=== PATIENT | male | born 1960 | race Caucasian/White ===

== ENCOUNTER 2017-07-18 05:58 | Inpatient (IN) | payer OTHER ==
--- NOTE | 2017-07-09 04:11 | GHP ---
[f rep st] HISTORY AND PHYSICAL CURRENT COMPLAINT: Right hip osteoarthritis. HISTORY OF PRESENT ILLNESS: This is a 57-year-old male with several months increase in pain and decr ease in range of motion to right hip, worsening with use and with time. Despite conservative measure s, he continues to have these issues. X-ray reveals [id number] osteoarthritic changes. He wishes to have surgery in order to resolve the problem. ALLERGIES: He lists no prior allergies. CURRENT MEDICATIONS: Include: Lisinopril, hydrochlorothiazide, and loratadine. PAST MEDICAL HISTORY: Include arthritis. PAST SURGICAL HISTORY: He lists no prior surgeries. SOCIAL HISTORY: He has never been a smoker. He is a social drinker. PHYSICAL EXAMINATION: EYES: Pupils equal, round, and reactive to light. CHEST: Clear to auscultat ion. HEART: Regular rate and rhythm. ABDOMEN: Soft and nontender. RIGHT HIP: Reveals decreased range of motion, internal-external rotation to a flexed hip. IMAGING: X-ray exam reveals [id number] osteoarthritic changes to the right hip. PLAN: Take him to the operating room to undergo a right total hip arthroplasty. /[id number]/MODL
[2017-07-18] MEDS ORDERED: TRANEXAMIC ACID 3,000 MG in NS (SYRINGE) 50 ML IRR ONE (06:00)
[2017-07-18] MEDS ORDERED: ROPIVACAINE 0.2% 80 MG, EPINEPHrine 0.2 MG, KETOROLAC TROMETHAMINE 30 MG, morphINE 10 M... IU ONE (06:00)
[2017-07-18] MEDS ORDERED: ceFAZolin 2 GM/SWFI 2 GM/20 ML SYR IVP ONE (06:00)
[2017-07-18] MEDS ORDERED: PREGABALIN 150 MG CAP PO ONE (06:00)
[2017-07-18] MEDS ORDERED: ACETAMINOPHEN 500 MG TAB PO ONE (06:00)
[2017-07-18] MEDS ORDERED: CALCIUM CHLORIDE 1 GM/10 ML INJ ONE (06:38)
[2017-07-18] MEDS ORDERED: THROMBIN (BOVINE) 5,000 UNIT VIAL TP ONE (06:38)
[2017-07-18] MEDS ORDERED: BACITRACIN 50,000 UNITS/10 ML SYR IRR ONE (06:38)
[2017-07-18] MEDS ORDERED: POLYMYXIN B SULFATE 500,000 UNIT/10 ML SYR IRR ONE (06:38)
[2017-07-18] MEDS ORDERED: BUPIVACAINE/EPI 0.5% 30 ML SDV ONE (06:38)
[2017-07-18] MEDS ORDERED: TRANEXAMIC ACID 3,000 MG/50 ML BAG IRR ONE (06:39)
[2017-07-18] MEDS ORDERED: MIDAZOLAM 2 MG/2 ML VIAL IVP ONE (06:58)
--- NOTE | 2017-07-18 06:58 | PDANEPAE ---
ANE History of Present Illness here for YANA ANE Past Medical History - Cardiovascular History Hx Hypertension: Yes Hx Arrhythmias: No Hx Chest Pain: No Hx Coronary Artery / Peripheral Vascular Disease: No Hx CHF / Valvular Disease: No Hx Palpitations: No - Pulmonary History Hx COPD: No Hx Asthma/Reactive Airway Disease: No Hx Recent Upper Respiratory Infection: No Hx Oxygen in Use at Home: No Hx Sleep Apnea: No Sleep Apnea Screening Result - Last Documented: Negative - Neurologic History Hx Cerebrovascular Accident: No Hx Seizures: No Hx Dementia: No - Endocrine History Hx Diabetes: No - Renal History Hx Renal Disorders: No - Liver History Hx Hepatic Disorders: No - Neurological & Psychiatric Hx Hx Neurological and Psychiatric Disorders: No - Cancer History Hx Cancer: No - Congenital Disorder History Hx Congenital Disorders: No - GI History Hx Gastrointestinal Disorders: No - Other Health History Other Health History: NEG - Chronic Pain History Chronic Pain: Yes (R HIP) - Surgical History Prior Surgeries: APPENDECTOMY ANE Review of Systems Review of Systems: - Exercise capacity METS (RN): 4 METS ANE Patient History - Allergies Allergies/Adverse Reactions: No Known Allergies Allergy (Verified 06/28/17 13:25) - Home Medications Home Medications: Herbals/Supplements -Info Only 1 ea PO DAILY 06/28/17 [Last Taken 07/11/17] Ibuprofen [Motrin (*)] 200 mg PO Q4H PRN 06/28/17 [Last Taken 07/11/17] Lisinopril/Hydrochlorothiazide [Lisinopril-Hctz 10-12.5 mg Tab] 1 each PO DAILY 06/28/17 [Last Taken 07/17/17 06:00] Loratadine [Claritin] 10 mg PO DAILY PRN 06/28/17 [Last Taken 07/15/17] Multivitamins [Multivitamin (*)] 1 each PO DAILY 06/28/17 [Last Taken 07/11/17] - NPO status NPO Since - Liquids (Date): 07/17/17 NPO Since - Liquids (Time): 04:00 NPO Since - Solids (Date): 07/17/17 NPO Since - Solids (Time): 19:00 - Smoking Hx Smoking Status: Never smoked - Family Anes Hx Family Hx Anesthesia Complications: NEG ANE Labs/Vital Signs - Vital Signs Blood Pressure: 154/93 Heart Rate: 74 Respiratory Rate: 16 O2 Sat (%): 95 Height: 177.8 cm Weight: 86.183 kg
[2017-07-18] MEDS ORDERED: fentaNYL 100 MCG/2 ML INJ ONE ×3 (07:08→10:00)
[2017-07-18] MEDS ORDERED: PROPOFOL/EMULSION 500 MG/50 ML BOTTLE IV ONE ×2 (07:13→08:21)
[2017-07-18] MEDS ORDERED: LR 1,000 ML IV ONE (07:23)
[2017-07-18] MEDS ORDERED: ONDANSETRON 4 MG/2 ML VIAL IVP PRN ×2 (09:35→09:55)
[2017-07-18] MEDS ORDERED: TEMAZEPAM 15 MG CAP PO PRN (09:35)
[2017-07-18] MEDS ORDERED: DIPHENOXYLATE/ATROPINE LOMOTIL 1 TAB PO PRN (09:35)
[2017-07-18] MEDS ORDERED: METOCLOPRAMIDE 10 MG/2 ML VIAL IVP PRN (09:35)
[2017-07-18] MEDS ORDERED: POLYETHYLENE GLYCOL 3350 17 GM PKT PO PRN (09:35)
[2017-07-18] MEDS ORDERED: TAPENTADOL HCL 50 MG TAB PO PRN (09:35)
[2017-07-18] MEDS ORDERED: diphenhydrAMINE 25 MG CAP PO PRN (09:35)
[2017-07-18] MEDS ORDERED: BISACODYL 10 MG SUPP PR PRN (09:35)
[2017-07-18] MEDS ORDERED: MAGNESIUM HYDROXIDE 30 ML UDCUP PO PRN (09:35)
[2017-07-18] MEDS ORDERED: LACTULOSE 20 GM/30 ML UDCUP PO PRN (09:35)
[2017-07-18] MEDS ORDERED: CYCLOBENZAPRINE 10 MG TAB PO PRN (09:35)
[2017-07-18] MEDS ORDERED: oxyCODONE IR 5 MG TAB PO PRN (09:35)
[2017-07-18] MEDS ORDERED: PROMETHAZINE HCL 25 MG SUPPR PR PRN (09:35)
--- NOTE | 2017-07-18 09:35 | POSTOPPROG ---
Post Op Note Date of Operation: 07/18/17 Surgeon: Ruby Marks Form Builder: coltrain Anesthesia: Epidural, IV Sedation Pre-op Diagnosis: r hip oa Procedure: r demian Inf/Abcess present in the surg proc area at time of surgery?: No Depth: Deep Incisional (Fascial) EBL: 100-500
[2017-07-18] MEDS ORDERED: NALOXONE HCL 0.4 MG/ML INJ IVP PRN ×2 (09:55→09:56)
[2017-07-18] MEDS ORDERED: ALBUTEROL 3 ML DEYVIAL IH PRN (09:55)
[2017-07-18] MEDS ORDERED: fentaNYL 100 MCG/2 ML INJ IVP PRN (09:56)
[2017-07-18] MEDS ORDERED: LR 1,000 ML IV SCH (10:00)
[2017-07-18] MEDS ORDERED: HYDROmorphONE/DILAUDID 1 MG/ML INJ ONE (10:00)
[2017-07-18] MEDS: HYDROmorphONE/DILAUDID 1 MG/ML INJ IVP PRN ×2 (10:06→10:31)
--- NOTE | 2017-07-18 10:48 | GOP ---
[f rep st] OPERATIVE REPORT DATE OF OPERATION: 07/18/2017 SURGEON: Ruby Marks MD MOTION PICTURE COMMENTATOR: Angelo Gutiérrez, CSFA, LSA whose presence was medically necessary. ANESTHESIA: By spinal, plus IV sedation. PREOPERATIVE DIAGNOSIS: Right hip osteoarthritis. POSTOPERATIVE DIAGNOSIS: Right hip osteoarthritis. PROCEDURE PERFORMED: Right total hip arthroplasty with fluoroscopy. FINDINGS: INDICATIONS: This is a 57-year-old male with a several year history of right hip pain worsening with use and with time despite multiple conservative measures. X-ray exam reveals osteoarthritic changes as well as cystic changes in the acetabulum suggesting ulax-do-yipn arthritis. He wishes to have josias star in order to resolve the problem. DESCRIPTION OF PROCEDURE: Patient brought to the operating room after the right side had been identi fied as correct side by the patient, nurse and physician. Once in the operating room, he was given an epidural anesthetic and he was then placed supine on a traction table with a well-padded peroneal po st. Both legs were placed in the appropriate leg martinez. Fluoroscopy was used to ensure proper posi tioning of the pelvis on the table at which point, the right hip and flank were sterilely prepped and draped in the usual fashion using GSI solution. Once prepped and draped, a linear incision was made starting 2 cm lateral and inferior to the ASIS and heading in a 15-degree posterior direction. Sharp dissection was carried down through the skin and subcutaneous layers, with bleeding controlled using electrocautery. The fascia overlying the TFL was incised in line with its fibers, with the muscle be lly retracted laterally. Blunt dissection was carried deep finding the circumflex vessels at its bas e and these were also cauterized. Deeper dissection was carried down onto the hip capsule, with blunt Cobra retractors placed in superior and inferior portions of the capsule. The anterior capsule was t hen excised in order to gain access into the hip and an oscillating saw was used to cut just above th e intertrochanteric line with the leg in an externally rotated 40 degrees and a corkscrew used to rem ove the femoral head. The labrum as well as the pulvinar from the base of the acetabulum was removed and sequential reamers were used starting at a size 55 and going up to a size 59 in order to get goo d purchase and bleeding bone throughout the acetabulum. A 59 trial was noted to fit securely and was checked under fluoroscopy. Therefore, a 60 mm Tritanium cup from [employer] was put into place, noted to fit securely and a screw was placed in superior and posterior portions as well as metal covered it s base. The cup was then thoroughly irrigated with antibiotic solution and a 60 x 32 ceramic liner w as put into place. Once completed, the leg was then externally rotated to 90 degrees with retractors placed in the posterior portion of the femoral neck and the anterior portion, with capsular dissecti on of the anterior and superior portion of the femoral neck. Once an adequate capsular release had b een done, the leg was dropped into extension and abduction. Curette was used to remove the medullary bone from the proximal portion of the femur. Rongeur was used to remove the superior portion of the f emoral neck in order to gain access. Starter awl was placed within the femur and then sequential broa ches were used up to a size 6 which was noted to fit securely. A trial reduction was performed. Flu oroscopy showed adequate fill of the proximal femur with good length. Therefore, the leg was redislo cated, sent into extension and adduction. The trial was removed and a size 6 Accolade II, 132 degree neck stem was put into place. Another trial reduction was performed to ensure proper lengthening. O nce lengthening was ensured with a -4 head, the hip was re-dislocated. The trunnion was washed and d ried, and a 32, -4 ceramic head was put into place, noted to fit securely. The leg was then reduced and noted to have good stability. The capsule as well as periosteum of the femur and the acetabulum w ere injected with joint cocktail. Tranexamic acid was placed within the wound in order to help contr ol bleeding. Then, 0 Vicryl suture was used to close the fascial layers of the TFL with plasma gel p laced intra-articularly. Then, 0 Vicryl and 2-0 Vicryl suture used to close subcutaneous layers with plasma gel placed external to the TFL fascia and a 3-0 V-Loc suture in a running subcuticular stitch to close the skin. The wound was dressed with Steri-Strips, Xeroform, 4x4s, and Tegaderm. He was c ompletely undraped in the operating room, had both legs taken out of their appropriate leg martinez. T he perineal post was removed. Leg lengths were noted to be nearly equal. He was then transferred on to a stretcher, and sent to recovery room in good condition. /[id number]/MODL
[2017-07-18] MEDS ORDERED: ONDANSETRON 4 MG/2 ML VIAL ONE (11:11)
[2017-07-18] MEDS: KETOROLAC 30 MG/1 ML SDV IVP SCH ×2 (11:44→18:22)
[2017-07-18 11:47] VITALS: RESP 16
[2017-07-18] MEDS: LISINOPRIL/HCTZ 10/12.5 MG 1 EA TAB PO SCH (13:03)
[2017-07-18] MEDS: CETIRIZINE 10 MG TAB PO SCH (13:03)
[2017-07-18] MEDS: ACETAMINOPHEN 325 MG TAB PO SCH ×2 (13:25→18:22)
[2017-07-18] MEDS: traMADol 50 MG TAB PO SCH ×2 (13:25→18:22)
--- NOTE | 2017-07-18 13:33 | POSTANESTH ---
Post Anesthetic Evaluation Cardiovascular Status: Normal, Stable Respiratory Status: Normal, Stable Level of Consciousness/Mental Status: Can Participate in Eval Pain Control: Adequate, Prn Tx Ordered Nausea/Vomiting Control: Adequate, Prn Tx Ordered Complications Possibly Related to Anesthesia: None Noted
[2017-07-18] MEDS: PROMETHAZINE HCL 25 MG/ML INJ IVP PRN ×2 (13:55→23:47)
[2017-07-18] MEDS ORDERED: ceFAZolin 2 GM/DEXTROSE 100 ML IV SCH (15:00)
[2017-07-18] MEDS: ceFAZolin 2 GM/SWFI 2 GM/20 ML SYR IVP SCH ×2 (15:13→23:47)
[2017-07-18] MEDS: SENNOSIDES/DOCUSATE SODIUM TAB PO SCH (22:03)
[2017-07-18] MEDS: FAMOTIDINE 20 MG TAB PO SCH (22:03)
[2017-07-19] MEDS: ACETAMINOPHEN 325 MG TAB PO SCH ×4 (00:05→18:48)
[2017-07-19] MEDS: KETOROLAC 30 MG/1 ML SDV IVP SCH ×4 (00:06→18:49)
[2017-07-19] MEDS: traMADol 50 MG TAB PO SCH ×4 (00:06→17:29)
[2017-07-19] MEDS: ONDANSETRON DISINTEGRATING 4 MG TAB PO PRN ×2 (08:48→14:14)
[2017-07-19] MEDS: LISINOPRIL/HCTZ 10/12.5 MG 1 EA TAB PO SCH (08:48)
[2017-07-19] MEDS: SENNOSIDES/DOCUSATE SODIUM TAB PO SCH (08:48)
[2017-07-19] MEDS: FAMOTIDINE 20 MG TAB PO SCH (08:49)
[2017-07-19] MEDS: CETIRIZINE 10 MG TAB PO SCH (08:49)
[2017-07-19] MEDS ORDERED: RIVAROXABAN 10 MG TAB PO SCH (09:00)
--- NOTE | 2017-07-19 10:03 | ASMTCMCOM ---
CM Note CM Note Notes: Reveiwed chart and discussed w/RN. Pt will dc home independantly and follow up w/outpt therapy near [place]. Date Signed: 07/19/2017 10:02 AM Electronically Signed By:Kirstie Tucker RN
[2017-07-19 15:12] VITALS: BP 100/67; PULSE 85; TEMP 98.3; O2SAT 97
--- NOTE | 2017-07-19 16:52 | SOAPPROG ---
SOAP Progress Note Assessment/Plan: Assessment: Plan: d/c home 07/19/17 16:52 Subjective: Pain minimal doing well Objective: Vital Signs Temp Pulse Resp BP Pulse Ox 36.8 C 85 16 100/67 97 07/19/17 15:10 07/19/17 15:10 07/19/17 15:10 07/19/17 15:10 07/19/17 15:10 Laboratory Results 07/19/17 04:58 07/18/17 07/19/17 07/20/17 05:59 05:59 05:59 Intake Total 4829 Output Total 770 300 Balance 4059 -300 dressing cdi, calf NT, nvi - Time Spent With Patient Time Spent With Patient: 15 - Pending Discharge Pending Discharge Within 24 Hours: Yes Pending Discharge Within 48 Hours: No Pending Discharge Date: 07/20/17 Pending Discharge Time: 11:00 ICD10 Worksheet Patient Problems: Problems Problem Status Onset Arthritis of right hip Acute - ICD10 Problem Qualifiers (1) Arthritis of right hip
--- NOTE | 2017-07-19 16:55 | PDIAF ---
- Diagnosis Code Status: Full Code - Medication Management Discharge Medications: Medications to Continue on Transfer Herbals/Supplements -Info Only 1 ea PO DAILY 06/28/17 [Last Taken 07/11/17] Lisinopril/Hydrochlorothiazide [Lisinopril-Hctz 10-12.5 mg Tab] 1 each PO DAILY 06/28/17 [Last Taken 07/17/17 06:00] Loratadine [Claritin] 10 mg PO DAILY PRN 06/28/17 [Last Taken 07/15/17] Multivitamins [Multivitamin (*)] 1 each PO DAILY 06/28/17 [Last Taken 07/11/17] Acetaminophen [Tylenol 325mg (*)] 650 mg PO Q6HRS tab 07/19/17 [Last Taken Unknown] Rivaroxaban [Xarelto 10mg (*)] 10 mg PO DAILY tab 07/19/17 [Last Taken Unknown] traMADol [Ultram 50 mg (*)] 50 mg PO Q6HRS tab 07/19/17 [Last Taken Unknown] Discharge Medications: Refer to the Discharge Home Medication list for PRN reason. PICC Care - Routine: N/A - Orders Services needed: Physical Therapy Diet Recommendation: no restrictions on diet Diet Texture: Regular Texture Diet - Follow Up Care Current Providers and Referrals: LUANNE MAGAÑA [Other] Ruby Marks MD [Medical Doctor] -
== END 2017-07-19 18:18 | disposition home or self-care (01) | DRG 470 ==
LOC: F3N 05:58
PROVIDERS: ADMIT Orthopaedic Surgery; ATTEND Orthopaedic Surgery
PROC: 0SR90JZ Replacement of Right Hip Joint with Synthetic Substitute, Open Approach (ICD-10-PCS; principal; 2017-07-18 07:15)
DX: M16.11 Unilateral primary osteoarthritis, right hip (principal); I10 Essential (primary) hypertension
CPT/HCPCS: 97110-GP; 97116-GP; 97161-GP; 97165-GO; 97530-GP; 97535-GO; C1713; J0171; J0690; J1170; J1885; J2250; J2270; J2405; J2550; J2704; J2795; J3010